=== PATIENT | male | born 1975 | race Two or more races ===

== ENCOUNTER 2024-08-01 18:14 | Emergency (ER) | payer MEDICAID, SELFPAY ==
[2024-08-01 18:16] VITALS: BMI 26.6
[2024-08-01 18:57] VITALS: BP 92/62; PULSE 98; RESP 18; TEMP 36.6; O2SAT 95
--- NOTE | 2024-08-01 19:14 | XR_ITS ---
Examination: Abdomen sonogram, Limited Date and time of exam: August 01, 2024 1002 p.M. INDICATIONS: Abdominal pain beginning 4 hours ago Technique: Real-time juarez scale transabdominal sonographic images of the upper abdomen obtained. Findings: 4 mm gallbladder polyp No gallstones Gallbladder wall 0.2 cm Common bile duct 0.3 cm Pancreatic head 3.1 cm Liver 14.3 cm irregular contour Normal hepatopedal portal venous flow Patent IVC IMPRESSION: 4 mm gallbladder polyp, negative for cholelithiasis, negative for cholecystitis Cirrhosis versus primary hepatocellular disease
--- NOTE | 2024-08-01 19:15 | EDRME_ITS ---
Rapid Medical Screening Exam [facility] Arrival date/time: 08/01/24 18:14 49M with history of alcoholic cirrhosis and bipolar disease presents to ED with brother for RUQ pain and some non-bloody N/V. Patient drank 750 mL of vodka today, which is more than usual. Patient denies SI/HI but brother would like psych team to evaluate him. Chief Complaint: Abdominal Pain Vital signs: Vital Signs Temperature 97.9 F 08/01/24 18:57 Pulse Rate 98 08/01/24 18:57 Respiratory Rate 18 08/01/24 18:57 Blood Pressure 92/62 08/01/24 18:57 Pulse Oximetry (%) 95 08/01/24 18:57 Oxygen Delivery Method Room Air 08/01/24 18:57
[2024-08-01 20:23] LABS: Lactate (Lactic Acid) 2.8 mMol/L (0.4-2.0)
[2024-08-01 20:25] LABS: Base Excess, Venous 3 (-3-3); Basophils # (Auto) 0.1 Thou/mm3 (0.0-0.2); Basophils % (Auto) 1 % (0-2.5); Eosinophils # (Auto) 0.3 Thou/mm3 (0.0-0.5); Eosinophils % (Auto) 4 % (0-10); Hematocrit 36.4 % (41.0-53.0); Immature Granulocytes % (Auto) 0 % (0-0); Immature Granulocytes Auto 0.01 Thou/mm3 (0.00-0.00); Lymphocytes # (Auto) 3.3 Thou/mm3 (1.0-4.8); Lymphocytes % (Auto) 41 % (10-50); Mean Corpuscular Hemoglobin 24.2 pg (25.0-35.0); Mean Corpuscular Volume 74 fL (80-100); Monocytes # (Auto) 0.7 Thou/mm3 (0.0-0.8); Monocytes % (Auto) 9 % (0-12); Neutrophils # (Auto) 3.6 Thou/mm3 (1.8-7.7); Neutrophils % (Auto) 45 % (37-80); Nucleated Red Blood Cell % 0 /100 WBC (0); O2 Saturation, Venous 87 % (96-97); PCO2, Venous 38 mmHg (36-56); PO2, Venous 54 mmHg (15-58); Platelet Count 320 Thou/mm3 (140-440); RDW Standard Deviation 54.6 fL (35.1-43.9); Red Blood Count 4.95 Miln/mm3 (4.50-5.90); pH, Venous 7.46 (7.33-7.66)
[2024-08-01 20:48] LABS: Amphetamine/Methamp Scrn,U Negative (Negative); Barbiturate Screen,Urine Positive (Negative); Benzodiazepines Screen,Urine Positive (Negative); Benzoylecgonine Screen, Ur Negative (Negative); Fentanyl Screen,Urine Negative (Negative); Opiate Screen,Urine Negative (Negative); THC Screen,Urine Positive (Negative)
[2024-08-01 20:53] LABS: Acetaminophen < 2.0 mcg/mL (10.0-20.0); Alanine Aminotransferase 85 U/L (10-49); Albumin, Serum 4.1 gm/dL (3.5-5.0); Albumin/Globulin Ratio 1.9 (1.2-2.2); Alcohol, Blood Medical 305.7 mg/dL (0-10.0); Alkaline Phosphatase 98 U/L (46-116); Anion Gap 11 (7-16); Aspartate Amino Transferase 34 U/L (0-34); BUN/Creatinine Ratio 8 Ratio (12-20); Bilirubin,Total 0.2 mg/dL (0.3-1.2); Blood Urea Nitrogen 7 mg/dL (9-23); Calcium 8.5 mg/dL (8.3-10.6); Calcium (Corrected) 8.5 mg/dL (8.5-10.1); Carbon Dioxide 25.7 mMol/L (20.0-31.0); Chloride 111 mMol/L (98-107); Creatinine (Component) 0.9 mg/dL (0.6-1.3); Estimated Creatinine Clearance 93.8 mL/min (>60); Globulin 2.2 gm/dL (2.3-3.5); Glucose 86 mg/dL (74-106); Lipase 31 U/L (12-53); Osmolality,Calculated 291 (275-295); Potassium 4.3 mMol/L (3.4-5.1); Salicylate < 3.0 mg/dL; Sodium 148 mMol/L (136-145); Total Protein 6.3 gm/dL (5.7-8.2); eGFR > 60 See Note
[2024-08-01 21:05] LABS: Ammonia 41 uMol/L (11-32)
[2024-08-01 23:04] VITALS: BP 109/71; PULSE 85; RESP 18; TEMP 36.8; O2SAT 97
[2024-08-01 23:20] LABS: Reflex Lactate? Y
--- NOTE | 2024-08-01 23:24 | EDNOTE_ITS ---
ED Abdominal Pain RME/HPI General Chief Complaint: Abdominal Pain Stated complaint: RUQ ABD PAIN X1 DAY, HX LIVER CIRRHOSIS Arrival date/time: 08/01/24 18:14 RME / HPI RME / HPI narrative: 08/01/24 18:14 49M with history of alcoholic cirrhosis and bipolar disease presents to ED with brother for RUQ pain and some non-bloody N/V. Patient drank 750 mL of vodka today, which is more than usual. Patient denies SI/HI but brother would like p sych team to evaluate him. --------- Dr. Maay?s Main ED Evaluation: 49yo male with a history of cirrhosis, bipolar disorder, alcohol abuse presents to the ED for a chief complaint of wanting to be sober . Brother states the patient has been living with him for the last 2 weeks and has been drinking nonstop. He is requesting the patient to be placed in a rehab facility. Patient does not have any medical complaints. Denies any abdominal pain, N/V, hematemesis, rectal bleeding or any other associated symptoms. Related Data Allergies Allergy/AdvReac Type Severity Reaction Status Date / Time No Known Allergies Allergy Verified 08/01/24 18:18 Review of Systems Review of Systems Systems Reviewed: All systems reviewed, normal except as documented Past Medical History Social History SMOKING STATUS: Former smoker ED Exam Narrative Physical exam: GENERAL APPEARANCE: alert and oriented x 4, slurred speech, strong odor of alcohol on his breath, answers questions appropriately, well-developed, well- nourished, no acute distress VITALS: All vitals were reviewed and the pulse ox is 97% on room air, which is normal according to my interpretation. HEENT: Normocephalic, atraumatic; pupils equal, round, reactive to light; EOMI; mucous membranes pink, moist; oropharynx clear NECK: Supple LUNGS: CTABL; no wheezes, no rales, no rhonchi HEART: Regular rate, regular rhythm; normal S1, S2; no murmurs ABDOMEN: non distended; normal BS; soft, no tenderness, no guarding, no rebound; no masses, no organomegaly, no hernia BACK: no CVA tenderness EXTREMITIES: atraumatic; no edema NEUROLOGIC: awake; alert and oriented x4; cranial nerves II-XII grossly intact; no focal sensory or motor deficits PSYCHIATRIC: appropriate mood and affect; no acute psychosis, no hallucinations SKIN: warm, dry, normal color; no rashes Course Quality Measures none Orders Category Date Time Status US gall bladder Stat Exams 08/01/24 19:14 Completed Acetaminophen Stat Lab 08/01/24 20:14 Completed Alcohol, Blood Medical Stat Lab 08/01/24 20:14 Completed Ammonia Stat Lab 08/01/24 20:14 Completed CBC Stat Lab 08/01/24 20:14 Completed CMP [Comprehensive Metabolic Panel] Stat Lab 08/01/24 20:14 Completed Drug Screen,Urine Stat Lab 08/01/24 20:25 Completed Lactate (Lactic Acid) Stat Lab 08/01/24 20:14 Completed Lactic Acid, 3 HR Stat Lab 08/01/24 23:20 Ordered Lipase Stat Lab 08/01/24 20:14 Completed Salicylate Stat Lab 08/01/24 20:14 Completed VBG [Venous Blood Gas] Stat Lab 08/01/24 20:14 Completed Vital Signs Vital signs: Vital Signs Temperature 97.9 F 08/01/24 18:57 Pulse Rate 98 08/01/24 18:57 Respiratory Rate 18 08/01/24 18:57 Blood Pressure 92/62 08/01/24 18:57 Pulse Oximetry (%) 95 08/01/24 18:57 Oxygen Delivery Method Room Air 08/01/24 18:57 Abdominal Pain MDM MDM Narrative MDM Narrative:: Scribe Attestation: 08/01/24 Radha Perla am scribing for and in the presence of Dr. Maya. I informed the patient's brother that we are not allowed to force the patient to attend rehab and that the patient cannot be declared incompetent due to his drinking. I informed the brother that the patient has to be willing to get sober on his own. Patient does not meet admission criteria at this time. Patient is alert and oriented x3 and answers all questions appropriately. Patient is stable to be discharged home. Patient data External records reviewed:: [facility] previous records (Per chart review, patient has no previous ED visits or admissions to this facility.) Clinical information provided by:: patient Social determinants that could affect healthcare access:: alcohol use Patient has the following chronic illnesses:: cirrhosis How is presenting disease/condition affected by chronic disease/condition?: u neffected by Evaluation data The following diagnostics were reviewed and interpreted by me:: lab results and radiology exam(s) Lab and/or radiology exams considered but not ordered:: none Interpretation Summary: CBC is normal, VBG is normal, Lactic Acid is 2.8, Lipase is normal, UDS is positive for benzodiazepines, marijuana, and barbituates, Blood Alcohol is elevated at 305.7. [facility] Report Signed Patient: JAMEL UNDERWOOD. Record#: [id number] Birthdate: 1975 Age/Sex: 49 / M Location: [facility] Attending Dr: Ordering Physician: Yuriy Ramirez PA-C Date of Service: 08/01/24 Procedure(s): US gall bladder Accession Number(s): [id number] cc: Max Yu MD; NO PRIMARY/FAMILY,PHYSICIAN; Yuriy Ramirez PA-C~ Examination: Abdomen sonogram, Limited Date and time of exam: August 01, 2024 1002 p.M. INDICATIONS: Abdominal pain beginning 4 hours ago Technique: Real-time juarez scale transabdominal sonographic images of the upper abdomen obtained. Findings: 4 mm gallbladder polyp No gallstones Gallbladder wall 0.2 cm Common bile duct 0.3 cm Pancreatic head 3.1 cm Liver 14.3 cm irregular contour Normal hepatopedal portal venous flow Patent IVC IMPRESSION: 4 mm gallbladder polyp, negative for cholelithiasis, negative for cholecystitis Cirrhosis versus primary hepatocellular disease Dictated By: Max Yu MD Signed By: <Electronically signed by Max Yu MD in > 08/01/24 2226 Medications / Prescriptions Medications or Prescriptions considered but not ordered:: none Medication administrations:: none Consultations Consultation(s) initiated? (list below): No Diagnosis Differential diagnosis abdominal pain: other (alcohol intoxication, drug intoxication, polypharmacy, psychosis) Most likely diagnosis given after review of the tests above:: see clinical impression below Admission Indicated Admission indicated?: not indicated Admission Request Was there a request for admission?: No Disposition Plan Disposition Plan: Discharge Discharge Attestation Discharge Attestation: The patient and all family members were given an opportunity to ask questions and understood the discharge instructions. Discharge instructions specifically effects, indications for sooner follow up or return to the emergency department, and the expected course of current diagnosis. Patient condition: Stable Discharge Plan Plan Patient Disposition: HOME (Self Care) Disposition Comment: Stable for discharge home Patient condition on transfer: Stable Prescriptions/Referrals Referrals: [facility] [Provider Group] - In 1 week Problem List Clinical Impression: Alcoholism, Alcohol intoxication, Drug abuse Patient/Caregiver Discharge Instructions Discharge Activity: activity as tolerated Education Materials: Finding the Right Rehab ..., Alcoholism: Myths and Facts, Alcoholism Resources, Alcoholism: Getting Help, Alcohol Addiction, Recovering from Addiction, ED Alcohol Intoxication Additional Instructions: Please return to the emergency department if you have any worsening or any further medical problems and we will help you. Otherwise you should follow-up with your primary care doctor within the next several days or in the [facility] Print Language: Welsh Stand Alone Forms: Kristina Award Info., Patient Portal Info Letter
[2024-08-01 23:42] VITALS: BP 107/78; PULSE 92; RESP 19; TEMP 37.2; O2SAT 98
== END 2024-08-01 23:44 | disposition home or self-care (01) ==
PROVIDERS: Physician Assistant; Emergency Provider Emergency Medicine
DX: K82.4 Cholesterolosis of gallbladder (principal); F10.229 Alcohol dependence with intoxication, unspecified; F19.10 Other psychoactive substance abuse, uncomplicated; Y90.8 Blood alcohol level of 240 mg/100 ml or more
CPT/HCPCS: 36415; 76705; 80053; 80307; 80320; 80329; 82140; 82803; 83605; 83690; 85025; 99284; G0480

== ENCOUNTER 2024-08-06 11:41 | Emergency (ER) | payer MEDICAID, SELFPAY ==
--- NOTE | 2024-08-06 11:43 | XR_ITS ---
Examination: AP chest single view Technique one AP portable upright chest single view Exam date and time: August 06, 2024 1235 hours INDICATIONS: Diagnosis cirrhosis 6 months ago, chest pain beginning 3 days ago. FINDINGS: Normal heart size. Lungs are clear. The osseous structures are intact IMPRESSION: No active disease
--- NOTE | 2024-08-06 11:46 | PD.EDABDPN ---
ED Abdominal Pain RME/HPI General Chief Complaint: Abdominal Pain Stated complaint: HEADACHE, ABD PAIN Time seen by provider: 08/06/24 11:43 Arrival date/time: 08/06/24 11:41 RME / HPI RME / HPI narrative: 49 year old male with history of hypertension, liver cirrhosis, gastric bypass (2012), gastritis presents to the ED [facility] from home for evaluation of abdominal pain that began today early in the morning. Patient described pain as aching in sensation that is located most to the right mid abdomen, rating as mild-moderate. Patient mentioned he is an alcoholic and had been drinking x 13 years, last drink was 6 days ago. States he was discharged from [facility] in [place] on 07/25/2024 for alcohol detoxification and withdrawal. Patient was discharged home from the facility with Librium, Acamprosate, Trazodone, Pantoprazole which he feels are exacerbating the pain. Denies any blood in stool. Denies fevers, chills, sweats, or vomiting. Related Data Allergies Allergy/AdvReac Type Severity Reaction Status Date / Time No Known Allergies Allergy Verified 08/01/24 18:18 Review of Systems Review of Systems Narrative Review of Systems: Constitutional: DENIES; Fevers Eyes: DENIES; Loss of vision Head/Ear/Nose: DENIES; Loss of hearing Throat: DENIES; Dysphagia Cardiovascular: DENIES; Chest pain, dyspnea or syncope Respiratory: DENIES; Shortness of breath Gastrointestinal: SEE HPI Genitourinary: DENIES; Dysuria (painful or difficult urination) Musculoskeletal: DENIES; Arthralgia (pain in a joint),; Skin: DENIES; Rash Neurological: DENIES; Loss of function or movement Allergic/Immunologic: DENIES; Urticaria (hives) Past Medical History Past Medical History CARDIAC: Negative Congestive Heart Failure RESPIRATORY: Negative Chronic Obstructive Pulmonary Disease (COPD) GASTROINTESTINAL: Positive Cirrhosis GENITOURINARY: Negative Renal Disease ENDOCRINE: Negative Diabetes Mellitus Type 1 or Diabetes Mellitus Type 2 Family History FAMILY HISTORY: Negative Family Cancer Surgical History SURGICAL: Positive Gastric Bypass Surgery (2012) Social History SMOKING STATUS: Never smoker ED Exam Narrative Physical exam: Physical Exam: General: The vital signs were reviewed. Patient is not tremulous despite stating he has drank for 6 days. the patient is non-toxic, in no apparent distress and appears healthy with a patent airway, no respiratory distress and has no apparent circulatory problems. Head & Scalp: Normocephalic, atraumatic. Face: Appears normal and is without lesions, deformity. Ears: Left external pinna appears normal. Right external pinna appears normal. Eyes: The sclera is anicteric. No obvious photophobia. The Left and Right Orbit/Lid/Conjunctiva appears normal without swelling, discoloration or injection. Nose: The nose is without deformity, discharge or tenderness; Throat: Appears normal. The mucous membranes are pink and moist without exudates, redness or mass seen. The tongue appears normal. Neck: The neck is supple and no apparent mass or adenopathy. Chest: The chest wall is normal in size and symmetry and has no chest wall tenderness or crepitus. The patient displays normal ventilator effort without retractions, accessory muscle use and has adequate air movement bilaterally with no wheezes and no rales. Cardiovascular: Regular rate and rhythm; No murmurs, rubs, or gallops; Gastrointestinal: The abdomen appears normal. No obvious hernias or mass. The abdomen is soft and benign, non-distended, with no pain, no guarding and no rebound tenderness. Bowel sounds are present and normal sounding. No CVA tenderness. Genitourinary: Back/Spine: Extremities/Musculoskeletal/lymphatic: The bilateral upper and lower extremities are warm. There is no evidence of arterial insufficiency. There is no evidence of venous insufficiency/edema. The patient spontaneously moves bilateral upper and lower extremities with no pain and no limitation of movement. There is no apparent, injury or trauma. Skin: The skin is warm, dry and intact. No rashes. No petechia. No purpura. No abnormal bruising. The color is appropriate with no cyanosis. Mental status/Psychiatric: Mental status is appropriate for age. The patient has no apparent delusions, visual hallucinations, no apparent audible hallucinations. The patient has no apparent suicidal thoughts/ideation and no apparent homicidal thoughts/ideation. Neurological: The patient is awake, alert, interactive, cordial, cooperative and is oriented to name and situation. The patient follows commands and answers historical question with no impairment. There is no visual disturbance apparent. The pupils are equal and reactive bilaterally with normal eye movements and no diplopia The bilateral upper and lower extremities have normal strength, normal range of motion and normal functioning. The gait, station and balance appear to be baseline with no acute change Course Quality Measures none Orders Category Date Time Status Insert IV NOW Care 08/06/24 11:43 Completed Insert IV NOW Care 08/06/24 11:43 Completed Miscellaneous Nursing Order NOW Care 08/06/24 11:43 Completed XR chest 1V portable Stat Exams 08/06/24 11:43 Completed Blood Culture (Lab) Stat Lab 08/06/24 12:26 Received CBC Stat Lab 08/06/24 12:26 Completed Comprehensive Metabolic Panel Stat Lab 08/06/24 12:26 Completed Drug Screen,Urine Stat Lab 08/06/24 14:17 Completed Lactate (Lactic Acid) Stat Lab 08/06/24 12:26 Completed Lipase Stat Lab 08/06/24 12:26 Completed Prothrombin Time with INR Stat Lab 08/06/24 12:26 Completed Type and Screen Stat Lab 08/06/24 12:26 Completed Urinalysis Stat Lab 08/06/24 14:17 Completed Venous Blood Gas Stat Lab 08/06/24 12:26 Completed Folic Acid Med 08/06/24 11:43 Discontinued 1 mg PO X1 ONE Multivitamin. Med 08/06/24 11:43 Discontinued 1 tab PO X1 ONE Sodium Chloride 0.9% 1000 ml [Ns] 1,000 ml Med 08/06/24 11:45 Discontinued IV 100 mls/hr Sodium Chloride 0.9% 1000 ml [Ns] 1,000 ml Med 08/06/24 11:43 Discontinued IV 999 mls/hr Thiamine Inj [Vitamin B-1 Inj] Med 08/06/24 11:43 Discontinued 100 mg IVP X1 ONE Vital Signs Vital signs: Vital Signs Temperature 98.4 F 08/06/24 12:22 Pulse Rate 72 08/06/24 12:22 Respiratory Rate 17 08/06/24 12:22 Blood Pressure 114/87 H 08/06/24 12:22 Pulse Oximetry (%) 97 08/06/24 12:22 Oxygen Delivery Method Room Air 08/06/24 12:22 Pulse ox is 97% on room air which is adequate. Abdominal Pain MDM MDM Narrative MDM Narrative:: Patient recently moved to [place] to be with family from [place] who has a history of heavy drinking for 13 years and cirrhosis states he woke up with some abdominal pain this morning. Pain is in his right upper quadrant. States he has not drank any alcohol for 6 days and despite this he is not tremulous at this time. Will do CIWA will observe and work him up for his belly pain. Should be noted his abdomen is soft and benign he does not have any surgical issue going on it is not distended and there is no obvious ascites. A medical workup revealed CBC with white count 8.5 hemoglobin 11.9 MCV of 74 with microcytic indices. PT/INR 11.3 and 1.0 VBG 7.43 pCO2 of 43 sodium 143 potassium 4.2 chloride 107 CO2 28 BUN 6 creatinine 0.8 transaminases are minimally elevated 50 and 63 total bilirubin is 0.4. Albumin is normal at 4.0 urine is negative. Drug screen is positive for benzodiazepines and marijuana. Patient states he has not drank for 5 days 6 days and therefore he did not even measure alcohol level because he does not smell of any alcohol. Chest x-ray was done which is negative is no infiltrates no effusion and normal heart size. Patient got hydrated with some multivitamins got a liter of fluid ate a burrito later on that his daughter brought in. He has not no nausea or vomiting. He was ambulatory without any symptoms. Had a long intermittent talk about not drinking anymore and daughter explained how he has burned some of his bridges and patient was even tearful over his alcoholism. They have plans for him to go to rehab and he was invited to get involved with [facility]. Patient knows return if getting worse in any way. Patient data External records reviewed:: [facility] previous records (I reviewed ED visit from 08/01/2024 for alcohol intoxication ), EMS form and Other (specify) (I reviewed discharge ppw and medications from [facility] in [place] on 07/25/2024) Clinical information provided by:: patient and EMS Social determinants that could affect healthcare access:: alcohol use Patient has the following chronic illnesses:: Alcoholism How is presenting disease/condition affected by chronic disease/condition?: exacerbated by Evaluation data The following diagnostics were reviewed and interpreted by me:: lab results and radiology exam(s) Lab and/or radiology exams considered but not ordered:: None Interpretation Summary: Ordering Physician: Arden Rob MD Date of Service: 08/06/24 Procedure(s): XR chest 1V portable Accession Number(s): [id number] cc: Arden Rob MD; Max Yu MD; NO PRIMARY/FAMILY,PHYSICIAN~ Examination: AP chest single view Technique one AP portable upright chest single view Exam date and time: August 06, 2024 1235 hours INDICATIONS: Diagnosis cirrhosis 6 months ago, chest pain beginning 3 days ago. FINDINGS: Normal heart size. Lungs are clear. The osseous structures are intact IMPRESSION: No active disease Dictated By: Max Yu MD Signed By: <Electronically signed by Max Yu MD in OV> 08/06/24 1246 Medications / Prescriptions Medications or Prescriptions considered but not ordered:: None Medication administrations:: Medication Administration History Discontinued Medications Folic Acid (Folic Acid 1 Mg Tablet) 1 mg PO X1 ONE Stop: 08/06/24 11:44 Last Admin: 08/06/24 13:00 Dose: 1 mg Documented By: Sodium Chloride (Ns) 1,000 mls @ 100 mls/hr IV .Q10H JACQUELIN Stop: 09/05/24 11:44 Last Admin: 08/06/24 13:04 Dose: 100 mls/hr Documented By: Sodium Chloride (Ns) 1,000 mls @ 999 mls/hr IV .Q1H1M ONE Stop: 08/06/24 12:43 Last Infusion: 08/06/24 14:13 Dose: Infused Documented By: Admin: 08/06/24 13:05 Dose: 999 mls/hr Documented By: Multivitamins (Multivitamins Tablet) 1 tab PO X1 ONE Stop: 08/06/24 11:44 Last Admin: 08/06/24 14:13 Dose: 1 tab Documented By: Thiamine HCl (Thiamine Inj 100 Mg/Ml Vial 2 Ml) 100 mg IVP X1 ONE Stop: 08/06/24 11:44 Last Admin: 08/06/24 13:01 Dose: 100 mg Documented By: See above Consultations Consultation(s) initiated? (list below): No Diagnosis Differential diagnosis abdominal pain: abdominal pain, gastroenteritis, pancreatitis and other (Liver cirrhosis ) Most likely diagnosis given after review of the tests above:: Alcoholism Marijuana use Hx of cirrhosis Admission Indicated Admission indicated?: not indicated Admission Request Was there a request for admission?: No Disposition Plan Disposition Plan: Discharge Discharge Attestation Discharge Attestation: The patient and all family members were given an opportunity to ask questions and understood the discharge instructions. Discharge instructions specifically effects, indications for sooner follow up or return to the emergency department, and the expected course of current diagnosis. Patient condition: Stable Discharge Plan Plan Patient Disposition: HOME (Self Care) Prescriptions/Referrals Referrals: No Primary/Family,Physician [Primary Care Provider] - In 1 week Problem List Clinical Impression: Alcoholism, Marijuana use, Hx of cirrhosis Patient/Caregiver Discharge Instructions Additional Instructions: As we discussed please do not drink alcohol or use marijuana ever again. Since you have a history of cirrhosis and your family is quite concerned about your drinking issues it would be advisable that she stop drinking get help consider [facility] or other alcohol or addiction programs. please return if getting worse in any way. Print Language: French
[2024-08-06 12:17] VITALS: PULSE 88; RESP 16; O2SAT 97; BMI 24.6
[2024-08-06 12:22] VITALS: BP 114/87; PULSE 72; RESP 17; TEMP 36.9; O2SAT 97
--- NOTE | 2024-08-06 12:30 | PC.NURSE ---
DR. CUENCA MADE AWARE PT'S CIWA SCORE 8 AT THIS TIME; NO NEW ORDERS RECEIVED.
[2024-08-06 12:39] LABS: Lactate (Lactic Acid) 0.9 mMol/L (0.4-2.0)
[2024-08-06 12:40] LABS: Base Excess, Venous 4 (-3-3); Basophils # (Auto) 0.1 Thou/mm3 (0.0-0.2); Basophils % (Auto) 1 % (0-2.5); Eosinophils # (Auto) 0.2 Thou/mm3 (0.0-0.5); Eosinophils % (Auto) 2 % (0-10); Hematocrit 36.4 % (41.0-53.0); Hemoglobin 11.9 g/dL (13.5-16.0); Immature Granulocytes % (Auto) 1 % (0-0); Immature Granulocytes Auto 0.04 Thou/mm3 (0.00-0.00); Lymphocytes # (Auto) 1.8 Thou/mm3 (1.0-4.8); Lymphocytes % (Auto) 21 % (10-50); Mean Corpuscular HGB Conc 32.7 g/dl (31.0-37.0); Mean Corpuscular Hemoglobin 24.2 pg (25.0-35.0); Mean Corpuscular Volume 74 fL (80-100); Monocytes # (Auto) 0.6 Thou/mm3 (0.0-0.8); Monocytes % (Auto) 8 % (0-12); Neutrophils # (Auto) 5.8 Thou/mm3 (1.8-7.7); Neutrophils % (Auto) 68 % (37-80); Nucleated Red Blood Cell % 0 /100 WBC (0); O2 Saturation, Venous 86 % (96-97); PCO2, Venous 43 mmHg (36-56); PO2, Venous 51 mmHg (15-58); Platelet Count 294 Thou/mm3 (140-440); RDW Standard Deviation 52.4 fL (35.1-43.9); Red Blood Count 4.92 Miln/mm3 (4.50-5.90); White Blood Count 8.5 Thou/mm3 (3.8-10.6); pH, Venous 7.43 (7.33-7.66)
[2024-08-06 12:55] LABS: Prothrombin Time 11.3 Seconds (9.0-12.2)
[2024-08-06 12:59] LABS: Alanine Aminotransferase 63 U/L (10-49); Albumin/Globulin Ratio 1.9 (1.2-2.2); Alkaline Phosphatase 85 U/L (46-116); Anion Gap 8 (7-16); Aspartate Amino Transferase 58 U/L (0-34); BUN/Creatinine Ratio 8 Ratio (12-20); Bilirubin,Total 0.4 mg/dL (0.3-1.2); Blood Urea Nitrogen 6 mg/dL (9-23); Carbon Dioxide 28.3 mMol/L (20.0-31.0); Chloride 107 mMol/L (98-107); Creatinine (Component) 0.8 mg/dL (0.6-1.3); Estimated Creatinine Clearance 109.3 mL/min (>60); Globulin 2.1 gm/dL (2.3-3.5); Glucose 100 mg/dL (74-106); Lipase 26 U/L (12-53); Osmolality,Calculated 282 (275-295); Potassium 4.2 mMol/L (3.4-5.1); Sodium 143 mMol/L (136-145); Total Protein 6.1 gm/dL (5.7-8.2); eGFR > 60 See Note
[2024-08-06] MEDS: FOLIC ACID 1 MG TABLET PO (13:00)
[2024-08-06] MEDS: THIAMINE INJ 100 MG/ML VIAL 2 ML IVP (13:01)
[2024-08-06] MEDS: SODIUM CHLORIDE 0.9% 1000 ML 1,000 ML 100 ML IV (13:04)
[2024-08-06] MEDS: SODIUM CHLORIDE 0.9% 1000 ML 1,000 ML 999 ML IV (13:05)
[2024-08-06] MEDS: MULTIVITAMINS TABLET 1 TAB PO (14:13)
[2024-08-06 14:34] LABS: Collection Type, Urine Clean Catch
[2024-08-06 14:41] LABS: Amorphous Crystals,Urine Present (Absent); Bacteria,Urine Rare; Bilirubin,Urine Negative (Negative); Blood,Urine Negative (Negative); Clarity,Urine Clear (Clear/Hazy); Color,Urine Lt-Yellow (Lt Yel-Yel); Glucose, Urine Negative (Negative); Ketones,Urine Negative (Negative); Leukocyte Esterase,Urine Negative (Negative); Nitrite,Urine Negative (Negative); Protein,Urine Negative (Neg - Trace); RBC,Urine 1 /hpf (0-3); Specific Gravity,Urine 1.009 (1.001-1.035); Squamous Epithelial Cell,Urine < 1 /hpf (0-5); Urobilinogen,Urine Negative mg/dL (0.0-1.0); WBC,Urine 1 /hpf (0-5)
[2024-08-06 14:57] LABS: Amphetamine/Methamp Scrn,U Negative (Negative); Barbiturate Screen,Urine Negative (Negative); Benzodiazepines Screen,Urine Positive (Negative); Benzoylecgonine Screen, Ur Negative (Negative); Fentanyl Screen,Urine Negative (Negative); Opiate Screen,Urine Negative (Negative); THC Screen,Urine Positive (Negative)
[2024-08-06 15:49] VITALS: BP 122/92; PULSE 98; RESP 15; TEMP 36.6; O2SAT 99
== END 2024-08-06 16:04 | disposition home or self-care (01) ==
PROVIDERS: Emergency Provider Emergency Medicine
DX: R10.9 Unspecified abdominal pain (principal); F10.20 Alcohol dependence, uncomplicated; K74.60 Unspecified cirrhosis of liver; F12.90 Cannabis use, unspecified, uncomplicated; I10 Essential (primary) hypertension
CPT/HCPCS: 36415; 71045; 80053; 80307; 81001; 82803; 83605; 83690; 85025; 85610; 86850; 86900; 86901; 87040; 96374; 99284; J3411; J7030; A9270